=== PATIENT | female | born 1970 | race Caucasian/White ===

== ENCOUNTER → 2017-11-26 | Outpatient (CLI) | payer MEDICARE, MEDICAID ==
[2014-12-29 15:01] VITALS: BP 123/71
[~2017-11-26] MED LIST: ABILIFY 10MG TA10 MG PO; ALEVE220 MG PO; AMBIEN10 MG PO; ATIVAN0.5 MG PO; BLOOD PRESSURE MED; CYMBALTA20 MG PO; CYMBALTA60 MG PO; FIORICET 325 MG1 TA1 PO; IMODIUM 2MG CAPS2 MG PO; LORTAB 5/500 501 TAB PO; LYRICA100 MG PO; NORCO 325 MG-51 TAB PO; PREGABALIN; SAVELLA12.5 MG PO; SAVELLA25 MG PO; SKELAXIN 800MG800 MG PO; SKELAXIN800 MG PO; TRAZADONE HYDR100 MG PO; ZOFRAN ODT8 MG PO; ZOFRAN4 M1 PO
[2017-11-26 15:34] LABS: EOS # 0.2 (0.04-0.40); EOS % 1.8 % (1.0-5.0); HEMATOCRIT 39.2 % (37.0-47.0); HEMOGLOBIN 12.2 g/dL (12.5-16.0); LYMPH# 2.6 (1.50-4.00); MEAN CELL VOLUME 89 fl (78-100); MEAN CORPUSCULAR HEMOGLOBIN 28 pg (27-31); MEAN CORPUSCULAR HGB CONC 31 g/dL (33-37); MEAN PLATELET VOLUME 10.9 fl (7.4-10.4); PLATELET COUNT 274 K/mm3 (130-400); RED BLOOD COUNT 4.39 M/mm3 (4.10-5.30); RED CELL DISTRIBUTION WIDTH 15.8 % (11.5-14.5); WHITE BLOOD COUNT 8.8 K/mm3 (4.8-10.8)
[2017-11-26 16:05] LABS: ALBUMIN 4.4 g/dL (3.5-5.0); BUN/CREATININE RATIO 11.6 (6.0-26.0); CALCIUM 9.3 mg/dL (8.4-10.2); POTASSIUM 3.9 mmol/L (3.6-5.0); TOTAL BILIRUBIN 0.4 mg/dL (0.2-1.3); TOTAL PROTEIN 8.1 g/dL (6.3-8.2)
== END ==
LOC: LAB 15:10
PROVIDERS: Dermatology
DX: L70.5 Acne excoriee (principal)

== ENCOUNTER → 2018-01-13 | Outpatient (CLI) | payer MEDICARE, MEDICAID ==
[2014-12-29 15:01] VITALS: BP 123/71
== END ==
LOC: MAMMO 01-11 11:16
DX: N60.02 Solitary cyst of left breast (principal); N60.12 Diffuse cystic mastopathy of left breast

== ENCOUNTER 2018-04-14 16:14 | Outpatient (RCR) | payer MEDICARE, MEDICAID ==
[2018-03-25 14:43] VITALS: BP 150/72
[2018-03-25 15:48] VITALS: BP 122/73
[2018-03-31 16:23] VITALS: BP 136/77
[2018-03-31 17:43] VITALS: BP 115/65
[2018-04-07 16:40] VITALS: BP 114/71
[2018-04-07 17:42] VITALS: BP 109/63
[~2018-04-14] VITALS: Ht 167.6 cm; Wt 81.8 kg
[~2018-04-14 16:14] MED LIST changes: +ALDACTONE50 M1 PO; +COZAAR 50MG50 MG/TAB PO; +CYANOCOBAL1000 MCG/1 IM; +FEROSUL325 M1 PO; +LINZESS145 MCG PO; +MYRBETRIQ25 MG PO; +OMEPRAZOLE D/R20 MG PO; +PHENDIMETRAZINE PO; +SINEQUAN 1100 MG/CAP PO; +TOPAMAX25 MG PO; +ZYRTEC ALLERGY10 MG PO
[2018-04-14 16:20] VITALS: BP 119/69
[2018-04-14 17:35] VITALS: BP 102/64
== END 2018-04-14 18:00 | disposition home or self-care (01) ==
LOC: AMSURD 16:14
DX: D50.9 Iron deficiency anemia, unspecified (principal)
CPT/HCPCS: J2916; J7050

== ENCOUNTER → 2018-08-16 | Outpatient (CLI) | payer MEDICARE, MEDICAID ==
[2018-08-16 12:01] LABS: HEMATOCRIT 42.8 % (37.0-47.0); HEMOGLOBIN 13.6 g/dL (12.5-16.0); MEAN PLATELET VOLUME 10.7 fl (7.4-10.4); RED BLOOD COUNT 4.51 M/mm3 (4.10-5.30); RED CELL DISTRIBUTION WIDTH 12.5 % (11.5-14.5); WHITE BLOOD COUNT 5.6 K/mm3 (4.8-10.8)
== END ==
LOC: LAB 11:41
DX: D50.9 Iron deficiency anemia, unspecified (principal)

== ENCOUNTER → 2019-03-13 | Outpatient (CLI) | payer MEDICARE, MEDICAID ==
[2019-03-13 13:50] LABS: HEMATOCRIT 40.8 % (37.0-47.0); HEMOGLOBIN 12.8 g/dL (12.5-16.0); RED BLOOD COUNT 4.29 M/mm3 (4.10-5.30); RED CELL DISTRIBUTION WIDTH 12.6 % (11.5-14.5); WHITE BLOOD COUNT 6.7 K/mm3 (4.8-10.8)
== END ==
LOC: LAB 13:32
PROVIDERS: Hospitalist
DX: D50.9 Iron deficiency anemia, unspecified (principal); R53.83 Other fatigue

== ENCOUNTER → 2019-04-04 | Outpatient (CLI) | payer MEDICARE | LOC: MAMMO 12:44 | DX: Z12.31 Encounter for screening mammogram for malignant neoplasm of breast (principal); N63.20 Unspecified lump in the left breast, unspecified quadrant; N64.89 Other specified disorders of breast ==

== ENCOUNTER → 2019-04-10 | Outpatient (CLI) | payer MEDICARE | LOC: MAMMO 07:45 | DX: N60.02 Solitary cyst of left breast (principal); N64.89 Other specified disorders of breast ==

== ENCOUNTER → 2020-01-11 | Outpatient (CLI) | payer MEDICARE, MEDICAID | LOC: LAB 10:09 | DX: Z01.818 Encounter for other preprocedural examination (principal); Z20.828 Contact with and (suspected) exposure to other viral communicable diseases ==

== ENCOUNTER → 2020-01-15 | Day surgery (SDC) | payer MEDICARE, MEDICAID | LOC: MSO 08:19 | DX: D50.9 Iron deficiency anemia, unspecified (principal); R10.12 Left upper quadrant pain; R11.0 Nausea; G47.33 Obstructive sleep apnea (adult) (pediatric); I10 Essential (primary) hypertension; E66.01 Morbid (severe) obesity due to excess calories; G43.909 Migraine, unspecified, not intractable, without status migrainosus; M79.7 Fibromyalgia; F32.9 Major depressive disorder, single episode, unspecified; Z98.84 Bariatric surgery status; Z88.8 Allergy status to other drugs, medicaments and biological substances; Z98.51 Tubal ligation status; Z88.5 Allergy status to narcotic agent; Z79.899 Other long term (current) drug therapy | CPT/HCPCS: 00813; J2405; J2704; J3010; J7120 ==

== ENCOUNTER → 2020-06-06 | Outpatient (CLI) | payer MEDICARE, MEDICAID | LOC: MAMMO 09:08 | DX: Z12.31 Encounter for screening mammogram for malignant neoplasm of breast (principal) ==

== ENCOUNTER 2022-09-02 08:21 | Emergency (ER) | payer MEDICARE, MEDICAID ==
[2022-09-02] MEDS ORDERED: MYRBETRIQ50 MG PO (08:32)
[2022-09-02] MEDS ORDERED: LOMAIRA8 MG (08:32)
[2022-09-02] MEDS ORDERED: OZEMPIC0.25 MG/0. SQ (08:32)
[2022-09-02 10:23] LABS: URINE APPEARANCE CLOUDY; URINE BILIRUBIN NEGATIVE (NEGATIVE); URINE COLOR YELLOW; URINE GLUCOSE NEGATIVE (NEGATIVE); URINE KETONE NEGATIVE (NEGATIVE); URINE PROTEIN(semi-quant) TRACE (NEGATIVE); URINE UROBILINOGEN NORMAL (NORMAL)
[2022-09-02 10:24] LABS: URINE BLOOD 50 ery/uL (NEGATIVE); URINE LEUKOCYTE ESTERASE 1+ (NEGATIVE); URINE MUCUS PRESENT (NOT PRESENT); URINE NITRATE POSITIVE (NEGATIVE); URINE WBC 31-50 /hpf (0-3)
[2022-09-02] MEDS ORDERED: BACTRIM DS TAB1 EACH PO (11:00)
[2022-09-02 11:21] VITALS: BP 158/97
== END 2022-09-02 11:11 | disposition home or self-care (01) ==
LOC: ED 08:21
PROVIDERS: Family Medicine
DX: N39.0 Urinary tract infection, site not specified (principal); Z79.891 Long term (current) use of opiate analgesic; Z79.899 Other long term (current) drug therapy; Z79.83 Long term (current) use of bisphosphonates; Z28.310 Unvaccinated for COVID-19
CPT/HCPCS: J0696

== ENCOUNTER 2023-07-12 17:39 | Emergency (ER) | payer MEDICARE, MEDICAID ==
[~2023-07-12] VITALS: Ht 162.6 cm; Wt 67.3 kg
[~2023-07-12 17:39] MED LIST changes: +BACTRIM DS TAB1 EACH PO; +CLEOCIN HCL300 MG PO; +KETOROLAC10 MG PO; +LINZESS290 MCG PO; +LOMAIRA8 MG; +MACROBID 100 M100 MG PO; +MYRBETRIQ50 MG PO; +OZEMPIC0.25 MG/0. SQ; +PANTOPRAZOLE SO40 MG PO; +PREDNISONE10 MG; +REGLAN10 M2 PO; +ZOFRAN ODT4 MG PO
[2023-07-12 18:40] LABS: BASO # 0.02 K/mm3 (0.02-0.10); EOS % 0.9 % (1.0-5.0); HEMATOCRIT 29.5 % (37.0-47.0); HEMOGLOBIN 9.3 g/dL (12.5-16.0); LYMPH# 1.21 K/mm3 (1.50-4.00); MEAN CELL VOLUME 95 fl (78-100); MEAN CORPUSCULAR HEMOGLOBIN 30 pg (27-31); MEAN CORPUSCULAR HGB CONC 32 g/dL (33-37); MONO # 0.88 K/mm3 (0.20-0.80); NEU # 8.53 K/mm3 (1.40-6.50); PLATELET COUNT 326 K/mm3 (130-400); RED CELL DISTRIBUTION WIDTH 14.4 % (11.5-14.5); WHITE BLOOD COUNT 10.8 K/mm3 (4.8-10.8)
[2023-07-12 18:48] LABS: ALBUMIN 3.4 g/dL (3.5-5.0); SODIUM 136 mmol/L (136-145)
[2023-07-12 18:49] LABS: CALCIUM 9.3 mg/dL (8.3-10.5)
[2023-07-12 18:50] LABS: GLUCOSE 90 mg/dL (65-105)
[2023-07-12 18:51] LABS: CARBON DIOXIDE 21 mmol/L (22-29)
[2023-07-12 18:52] LABS: TOTAL BILIRUBIN 0.4 mg/dL (0.2-1.2)
[2023-07-12 18:56] LABS: AST-SGOT 26 U/L (5-34)
[2023-07-12 18:57] LABS: ACETAMINOPHEN 2 ug/mL; ALT/SGPT 23 U/L (0-55)
[2023-07-12 19:01] LABS: ALCOHOL IN-HOUSE < 10 mg/dL (<10)
[2023-07-12 21:18] VITALS: BP 146/77
[2023-07-12 22:01] LABS: URINE APPEARANCE CLOUDY (CLEAR); URINE COLOR YELLOW (YELLOW)
[2023-07-12 22:03] LABS: URINE BILIRUBIN NEGATIVE (NEGATIVE); URINE BLOOD 2+ (NEGATIVE); URINE GLUCOSE NEGATIVE (NEGATIVE); URINE KETONE NEGATIVE (NEGATIVE); URINE LEUKOCYTE ESTERASE 1+ (NEGATIVE); URINE NITRATE POSITIVE (NEGATIVE); URINE PROTEIN(semi-quant) 1+ (NEGATIVE)
[2023-07-12] MEDS ORDERED: MACROBID 100 M100 MG PO (22:43)
== END 2023-07-12 21:35 | disposition home or self-care (01) ==
LOC: ED 17:39
PROVIDERS: Nurse Practitioner Family
DX: M54.2 Cervicalgia (principal); M25.512 Pain in left shoulder; R53.81 Other malaise; N39.0 Urinary tract infection, site not specified; N18.9 Chronic kidney disease, unspecified; W07.XXXA Fall from chair, initial encounter; Y92.009 Unspecified place in unspecified non-institutional (private) residence as the place of occurrence of the external cause
CPT/HCPCS: J2310; J7120